=== PATIENT | female | born 1950 | race Caucasian/White ===

== ENCOUNTER 2018-06-17 13:43 | Outpatient (CLI) | payer MEDICARE ==
[2018-06-17 15:25] LABS: #Basophils 0.1 thou/uL (0.0-0.2); #Eosinphils 0.2 thou/uL (0.0-0.7); #Lymphocytes 2.2 thou/uL (1.20-3.40); #Monocytes 0.5 thou/uL (0.11-0.59); #Neutrophils 4.2 thou/uL (1.40-6.50); %Basophils 0.7 % (0.0-1.0); %Lymphocytes 31.4 % (21.0-51.0); %Monocytes 6.7 % (0.0-10.0); %Neutrophils 58.3 % (42.0-75.0); Hemoglobin 13.7 g/dL (12.0-16.0); Mean Corpuscular HGB CONC 33.3 g/dL (32.0-36.0); Mean Corpuscular Volume 86.9 fL (78.0-98.0); Mean Platelet Volume 8.3 fL (7.4-10.4); Platelet Count 285 thou/uL (130-400); RBC Distribution Width 12.7 % (11.5-14.5); Red Blood Cell (RBC) Count 4.71 mill/uL (4.20-5.40); White Blood Cell (WBC) Count 7.1 thou/uL (4.8-10.8)
[2018-06-17 15:45] LABS: Anion Gap 14 mmol/L (10-20); BUN (Urea Nitrogen) 21 mg/dL (9.8-20.1); Calc. Creatinine Clearance 0 mL/min (70-130); Calcium 10.3 mg/dL (7.8-10.44); Carbon Dioxide 25 mmol/L (23-31); Chloride 105 mmol/L (98-107); Estimated GFR-MDRD 61; Glucose 116 mg/dL (80-115); Potassium 3.2 mmol/L (3.5-5.1); Sodium 141 mmol/L (136-145)
== END 2018-06-17 13:44 | disposition home or self-care (01) ==
LOC: LABBT 13:43
PROVIDERS: ATTEND Orthopaedic Surgery
DX: Z01.818 Encounter for other preprocedural examination (principal); S46.212A Strain of muscle, fascia and tendon of other parts of biceps, left arm, initial encounter
CPT/HCPCS: 80048; 85025

== ENCOUNTER 2018-06-21 06:20 | Day surgery (SDC) | payer MEDICARE ==
[2018-06-17 13:55] VITALS: BMI 31.4
[2018-06-21] MEDS ORDERED: Midazolam HCl 2 mg/2 ml Vial ONE (07:55)
[2018-06-21] MEDS ORDERED: Fentanyl 100 MCG/2 ML VIAL ONE ×2 (07:55→08:21)
[2018-06-21] MEDS ORDERED: CEFAZOLIN/Water 2 GM/20 ML SYRINGE ONE (08:03)
--- NOTE | 2018-06-21 11:59 | OP ---
DATE OF PROCEDURE: 06/21/2018 TYPE OF PROCEDURE: Left distal biceps repair. SURGEON: Emanuel Cohn M.D. LOOP TACKER: Gigi Zhang PA-C BLOOD LOSS: Minimal. SPECIMEN: None. DRAINS: None. COMPLICATIONS: None. DESCRIPTION OF PROCEDURE: The patient is taken to the operating room where general anesthesia was in duced. Left arm was prepped and draped in the usual sterile fashion. I made an oblique incision in the antecubital fossa looking the biceps tendon. Biceps tendon was trimmed and prepared using a Fibe rWire suture. I identified the radial tuberosity. I cleaned this with a curette and periosteal elev ator. I drilled a 4.5 mm hole bicortically. I drilled a 7 mm hole through one cortex. Used an Arth july Endobutton type device and passed the Endobutton through the radius, delivered the tendon into th e hole and then sutured back to the tendon and tied this. I then reinforced this with a Bio-Tenodesi s screw. Tourniquet was released. Irrigation was performed and hemostasis obtained. Subcutaneous t issue closed with 2-0 Vicryl, the skin was closed with 3-0 V-Loc. Sterile dressings applied.
[2018-06-21] MEDS ORDERED: Lidocaine 1% PF 5 ML VIAL ONE (12:28)
[2018-06-21] MEDS ORDERED: PHENYLEPHRINE-NS 100 MCG/ML 10 ML SYRINGE ONE (12:28)
[2018-06-21] MEDS ORDERED: Ondansetron HCl/PF 4 MG/2 ML Vial ONE (12:28)
[2018-06-21] MEDS ORDERED: PROPOFOL 200 MG/20 ML VIAL ONE (12:28)
[2018-06-21] MEDS ORDERED: ePHEDrine/0.9% NaCl/PF SYRINGE 50 mg/10 ml ONE (12:28)
[2018-06-21] MEDS ORDERED: Glycopyrrolate 0.2 MG/ML 5 ML SYRINGE ONE (12:28)
== END 2018-06-21 11:12 | disposition home or self-care (01) ==
LOC: SDC 06:20
PROVIDERS: ATTEND Orthopaedic Surgery
PROC: 0LM40ZZ Reattachment of Left Upper Arm Tendon, Open Approach (ICD-10-PCS; principal; 2018-06-21)
DX: S46.212A Strain of muscle, fascia and tendon of other parts of biceps, left arm, initial encounter (principal); I10 Essential (primary) hypertension; E78.00 Pure hypercholesterolemia, unspecified; M81.0 Age-related osteoporosis without current pathological fracture; Z79.02 Long term (current) use of antithrombotics/antiplatelets; Z79.899 Other long term (current) drug therapy
CPT/HCPCS: 24342; 93005; C1713; 93010; J2001; J2250; J2405; J2704; J3010

== ENCOUNTER 2018-10-30 12:26 | Outpatient (CLI) | payer MEDICARE ==
--- NOTE | 2018-10-30 14:30 | RAD ---
PA AND LATERAL CHEST: Date: 10/30/18 HISTORY: Chronic cough for a year. COMPARISON: 01/10/18. FINDINGS: The cardiac silhouette and pulmonary vasculature are within normal limits. There is a nodular density overlying the lateral aspect of the left upper lung zone. This may have been present on the prior ex am, but has the appearance more suggestive of scarring. This has a more nodular appearance on today's examination, and further evaluation with CT scan is recommended. The lungs are otherwise clear. Vasc ular calcification in thoracic aorta. Degenerative changes are noted in the spine. Surgical clips ove rlie the right upper quadrant. IMPRESSION: Nodular density projecting over the left upper lung zone. Further evaluation with CT scan thorax is r ecommended. CODE T. POS: [facility]
== END 2018-10-30 12:27 | disposition home or self-care (01) ==
LOC: BICRAD 12:26
PROVIDERS: ATTEND Internal Medicine Gastroenterology
DX: R05 Cough (principal); R11.10 Vomiting, unspecified; K21.9 Gastro-esophageal reflux disease without esophagitis; R10.30 Lower abdominal pain, unspecified; J98.4 Other disorders of lung
CPT/HCPCS: 71046

== ENCOUNTER 2018-11-07 09:40 | Outpatient (CLI) | payer MEDICARE ==
--- NOTE | 2018-11-07 11:26 | ULT ---
ABDOMEN ULTRASOUND; HISTORY: GERD. Vomiting. FINDINGS: The liver demonstrates increased echogenicity, consistent with fatty infiltration. No focal mass or intrahepatic ductal dilatation is seen. The spleen is normal, measuring 9.7 cm in length. The patie nt is post cholecystectomy. The common duct measures 2 mm in diameter. The tail of the pancreas is not well visualized. The remainder of the pancreas and the visualized portions of the aorta and IVC are unremarkable. No hydronephrosis is seen on either side. There is a 2.7 cm right renal cyst. No free fluid is seen. IMPRESSION: 1. Fatty liver. 2. Right renal cyst. 3. Status post cholecystectomy without abnormal biliary ductal dilatation. POS: [facility]
--- NOTE | 2018-11-07 13:46 | CT ---
CHEST CT WITHOUT CONTRAST: HISTORY: Follow up lung pulmonary nodule. COMPARISON: None. CORRELATION: Chest radiograph from 10/30/2018. TECHNIQUE: A noncontrast chest CT is performed in the axial plane. Reformatted images are submitted for interpr etation. FINDINGS: Limited evaluation of the mediastinum due to lack of IV contrast. There are nonspecific, nonenlarged mediastinal lymph nodes. There are coronary artery calcifications. Heart size is within normal sauer its. No pericardial fluid. The visualized aorta has a normal caliber. No periaortic fat stranding. The visualized upper solid organs are unremarkable. Note is made of a moderate hiatal hernia. There are no lytic or blastic lesions in the osseous struc tures. Trachea and central bronchi are patent. Dependent atelectatic changes in the right lung. No suspici ous masses or consolidation. There is a small pleural-based calcification in the right lower lobe, l ikely representing sequela of granulomatous disease. There are no suspicious masses in the left lower lobe. Chronic changes and atelectasis are suspected . In the left upper lobe, there is a 0.9 x 1.1 cm, spiculated nodule, corresponding to recent radiog raphic finding. The lesion is suspicious for malignancy, given spiculation. No pleural effusion or pneumothorax. IMPRESSION: Spiculated nodule in the left upper lobe. The lesion may be amenable to a percutaneous biopsy with C T guidance. The results of the study were discussed with Dr. Hurt and Dr. Slade on 11/07/2018 at 1:05 p.m. CODE CR POS: [facility]
== END 2018-11-07 09:41 | disposition home or self-care (01) ==
LOC: BICULT 09:40
PROVIDERS: ATTEND Internal Medicine Gastroenterology
DX: K21.9 Gastro-esophageal reflux disease without esophagitis (principal); R11.10 Vomiting, unspecified; R05 Cough; R10.30 Lower abdominal pain, unspecified; J98.4 Other disorders of lung; R91.1 Solitary pulmonary nodule; K76.0 Fatty (change of) liver, not elsewhere classified; N28.1 Cyst of kidney, acquired; Z90.49 Acquired absence of other specified parts of digestive tract
CPT/HCPCS: 71250; 76700

== ENCOUNTER 2018-11-22 07:28 | Outpatient (CLI) | payer MEDICARE ==
--- NOTE | 2018-11-25 11:39 | PET ---
PET WITH CT SKULL TO MID THIGH: COMPARISON: Reference is made to chest CT noncontrast 11/07/2018. CLINICAL HISTORY: Solitary pulmonary nodule. RADIOTRACER: 11.5 mCi Fluoroine-18 FDG IV intermixed with 10 cc 0.9% sodium chloride. There is biodistribution of radiotracer activity. FINDINGS: Redemonstration of pulmonary nodule of the periphery of the left lung apex, posterolaterally measurin g approximately 1.2 cm transverse within limitations as there is a component of respiratory motion so mewhat obscuring the margins of the nodule. There is no hypermetabolic activity confirmed within the nodule. There is a moderate to large hiatal hernia and there is a tiny fat density focus of the superior pole left kidney which may relate to an angiomyelipoma. Focal hypodensity at the superior aspect of the right kidney indicates a cyst, and is not hypermetabolic. There is scattered vascular disease. IMPRESSION: Left upper lobe pulmonary nodule is not hypermetabolic, although the morphology of this finding is co ncerning for malignancy. Given the size and location of this nodule, it is not amenable to percutane ous biopsy. Therefore considerations for further therapy would include surgical consultation versus short-term 3-onth followup to evaluate for size progression, pending level of clinical suspicion. These findings and recommendations were telephoned to the patient's physician, Dr. Florentin Freeman, at the time of interpretation, 0945 hours, 11/25/2018. CODE CR POS: [facility]
== END 2018-11-22 07:29 | disposition home or self-care (01) ==
LOC: PET 07:28
PROVIDERS: ATTEND Internal Medicine Pulmonary Disease
DX: R91.1 Solitary pulmonary nodule (principal)
CPT/HCPCS: 78815; A9552

== ENCOUNTER 2019-02-25 10:37 | Outpatient (CLI) | payer MEDICARE, OTHER ==
--- NOTE | 2019-02-25 12:16 | RAD ---
PA AND LATERAL CHEST: HISTORY: Dyspnea. COMPARISON: 10/30/2018 FINDINGS: The heart size is normal. The aorta is tortuous. The lungs are well expanded without focal areas of consolidation, pneumothoraces, or pleural effusions. The nodular density in the left upper lung zon e, noted on the previous exam, is less prominent on the current exam. There are degenerative changes in the spine. POS: [facility]
== END 2019-02-25 10:38 | disposition home or self-care (01) ==
LOC: RAD 10:37
PROVIDERS: ATTEND Internal Medicine Pulmonary Disease
DX: R06.00 Dyspnea, unspecified (principal)
CPT/HCPCS: 71046

== ENCOUNTER 2019-08-26 10:21 | Outpatient (CLI) | payer MEDICARE ==
--- NOTE | 2019-08-26 10:35 | RAD ---
EXAM: Chest 2 views: HISTORY: Dyspnea COMPARISON: 02/25/2019 FINDINGS: There is a normal-sized cardiomediastinal silhouette. Atherosclerotic calcifications are seen in the aorta. There is no evidence of consolidation, mass, or pleural effusion. The bones are unremarkable. IMPRESSION: No evidence of acute cardiopulmonary disease
== END 2019-08-26 10:22 | disposition home or self-care (01) ==
LOC: RAD 10:21
PROVIDERS: ATTEND Internal Medicine Pulmonary Disease
DX: R06.00 Dyspnea, unspecified (principal)
CPT/HCPCS: 71046

== ENCOUNTER 2020-01-06 08:47 | Outpatient (CLI) | payer MEDICARE ==
--- NOTE | 2020-01-06 10:40 | MMO ---
Bilateral MAMMO Bilat Screen [facility]. CLINICAL HISTORY: Patient is 69 years old and is seen for screening. The patient has no family history of breast cancer. The patient has no personal history of cancer. VIEWS: The views performed were: bilateral craniocaudal with tomosynthesis and bilateral mediolateral oblique with tomosynthesis. FILMS COMPARED: The present examination has been compared to prior imaging studies performed at [facility] on 02/13/2014, 04/26/2016 and 09/25/2017. This study has been interpreted with the assistance of computer-aided detection. MAMMOGRAM FINDINGS: There are scattered fibroglandular densities. Finding 1: There are stable benign appearing calcifications seen in both breasts. Finding 2: There is a stable intramammary lymph node seen in the left breast. There are no suspicious masses, suspicious calcifications, or new areas of architectural distortion. IMPRESSION: THERE IS NO MAMMOGRAPHIC EVIDENCE OF MALIGNANCY. A ROUTINE FOLLOW-UP MAMMOGRAM IN 1 YEAR IS RECOMMENDED. THE RESULTS OF THIS EXAM WERE SENT TO THE PATIENT. ACR BI-RADS Category 2 - Benign finding MAMMOGRAPHY NOTE: 1. A negative mammogram report should not delay a biopsy if a dominant of clinically suspicious mass is present. 2. Approximately 10% to 15% of breast cancers are not detected by mammography. 3. Adenosis and dense breasts may obscure an underlying neoplasm. Reported by: PATRICIO ZARAGOZA MD Electonically Signed: [id number]
== END 2020-01-06 08:48 | disposition home or self-care (01) ==
LOC: BICMAMMO 08:47
PROVIDERS: ATTEND Internal Medicine
DX: Z12.31 Encounter for screening mammogram for malignant neoplasm of breast (principal)
CPT/HCPCS: 77063; 77067

== ENCOUNTER 2020-01-08 13:11 | Outpatient (CLI) | payer MEDICARE ==
--- NOTE | 2020-01-08 13:37 | BD ---
Exam: DEXA Bone Density 01/08/20 COMPARISON: None. HISTORY: 69-year-old postmenopausal female for screening. Lumbar Spine: BMD (g/cm2) T-SCORE L1 1.049 0.5 L2 1.068 0.4 L3 1.103 0.2 L4 1.132 0.6 L1-L4 1.093 0.4 Left Femoral Neck: 0.706 -1.3 Total Femur: 0.883 -0.5 Impression: Osteopenia. This patient has a 10 year WHO fracture risk of a major osteoporotic fracture of 9.1% and hip fracture of 1.2%. POS: [facility]
== END 2020-01-08 13:12 | disposition home or self-care (01) ==
LOC: BICMAMMO 13:11
PROVIDERS: ATTEND Internal Medicine Rheumatology
DX: M81.0 Age-related osteoporosis without current pathological fracture (principal); M85.852 Other specified disorders of bone density and structure, left thigh
CPT/HCPCS: 77080

== ENCOUNTER 2021-04-07 13:35 | Outpatient (CLI) | payer MEDICARE | END 2021-04-07 13:36 | disposition home or self-care (01) | LOC: BICRAD 13:35 | PROVIDERS: ATTEND Internal Medicine Pulmonary Disease | DX: R06.00 Dyspnea, unspecified (principal) | CPT/HCPCS: 71046 ==

== ENCOUNTER 2021-10-13 13:26 | Outpatient (CLI) | payer MEDICARE | END 2021-10-13 13:27 | disposition home or self-care (01) | LOC: RAD 13:26 | PROVIDERS: ATTEND Internal Medicine Critical Care Medicine | DX: R06.00 Dyspnea, unspecified (principal); R91.8 Other nonspecific abnormal finding of lung field | CPT/HCPCS: 71046 ==